=== PATIENT | female | born 1955 | race American Indian/Alaskan Native ===

== ENCOUNTER 2020-12-26 09:28 | Outpatient (CLI) | payer MEDICAID ==
--- NOTE | 2020-12-26 11:21 | Fluoroscopy Report ---
Barium swallow Indication: GERD. Technique: Single and double contrast barium technique utilized to evaluate the esophagus. Findings: To begin the exam, swallowing was evaluated in the lateral position under direct fluorosco py. Swallowing was normal. No mucosal irregularity, mass, mass effect, or critical stenosis. There were no abnormal tertiary c ontractions as seen with dysmotility. There was trace gastroesophageal reflux. Impression: Trace reflux. Otherwise unremarkable exam. Fluoroscopic time: 0.4 minutes Number of fluoroscopic images: 11 Signer Name: Rodolfo Levi MD Signed: 12/26/2020 11:16 AM Workstation Name: [id number]
== END 2020-12-26 09:29 | disposition home or self-care (01) ==
LOC: FLUORO 09:28
PROVIDERS: ATTEND Otolaryngology
DX: K21.9 Gastro-esophageal reflux disease without esophagitis (principal)
CPT/HCPCS: 74220